=== PATIENT | female | born 1955 | race Caucasian/White ===

== ENCOUNTER 2016-08-06 16:54 | Inpatient (IN) | payer OTHER, SELFPAY ==
[~2016-08-06] VITALS: Ht 160 cm; Wt 55.0 kg
[~2016-08-06 16:54] MED LIST: COREG 3.125M3.125 MG PO; LISINOPRIL20 MG PO
[2016-08-06 18:53] LABS: HEMOGLOBIN 14.8 gm/dl (12.3-15.3); RED BLOOD COUNT 4.46 M/UL (4.00-5.10); WHITE BLOOD COUNT 11.6 K/UL (4.5-11.0)
[2016-08-06 19:07] LABS: BUN/CREATININE RATIO 18 (0-10)
[2016-08-07 06:41] LABS: HEMOGLOBIN 13.5 gm/dl (12.3-15.3); RED BLOOD COUNT 4.04 M/UL (4.00-5.10)
[2016-08-07 06:46] LABS: WHITE BLOOD COUNT 8.3 K/UL (4.5-11.0)
[2016-08-07 07:08] LABS: BUN/CREATININE RATIO 28 (0-10)
[2016-08-07] MEDS ORDERED: NORVASC 5 MG TAB5 MG PO (13:00)
[2016-08-07] MEDS ORDERED: COREG 3.125M3.125 MG PO (13:01)
[2016-08-07] MEDS ORDERED: LORAZEPAM0.5 MG PO (13:02)
[2016-08-07] MEDS ORDERED: FIORICET TAB1 EA PO (13:04)
[2016-08-07] MEDS ORDERED: ZANAFLEX4 MG PO (13:05)
[2016-08-08 05:54] LABS: HEMOGLOBIN 12.3 gm/dl (12.3-15.3); RED BLOOD COUNT 3.76 M/UL (4.00-5.10)
[2016-08-08 05:56] LABS: WHITE BLOOD COUNT 11.4 K/UL (4.5-11.0)
[2016-08-08 06:13] LABS: BUN/CREATININE RATIO 28 (0-10)
[2016-08-09] MEDS ORDERED: SYMBICORT 16010.2 GM INH (16:25)
[2016-08-09] MEDS ORDERED: TESSALON PERLE100 MG PO (16:25)
[2016-08-09] MEDS ORDERED: OMNICEF 300 MG300 MG PO (16:26)
[2016-08-09] MEDS ORDERED: IPRAT-ALBUT 0.5-3 ML INH (16:27)
[2016-08-09] MEDS ORDERED: NICOTINE PATCH1 EAC2 TD (16:28)
== END 2016-08-09 17:45 | disposition home or self-care (01) | DRG 871 ==
LOC: ER1 16:54 → ZEROF 20:15 → M/S 20:15 → ZEROF 08-07 11:48 → M/S 08-07 11:48
PROVIDERS: Internal Medicine; Physician Assistant; ADMIT Hospitalist
DX: A41.9 Sepsis, unspecified organism (principal); J96.01 Acute respiratory failure with hypoxia; J18.9 Pneumonia, unspecified organism; J44.1 Chronic obstructive pulmonary disease with (acute) exacerbation; J44.0 Chronic obstructive pulmonary disease with (acute) lower respiratory infection; E87.1 Hypo-osmolality and hyponatremia; J20.9 Acute bronchitis, unspecified; F17.210 Nicotine dependence, cigarettes, uncomplicated; I10 Essential (primary) hypertension; Z79.899 Other long term (current) drug therapy; Z82.49 Family history of ischemic heart disease and other diseases of the circulatory system
CPT/HCPCS: 36415; 36600; 71010; 71020; 80048; 80053; 81001; 82550; 82553; 82803; 82962; 83605; 83874; 84484; 85025; 86140; 87040; 87081; 87086; 87278; 87880; 93005; 94640; 94664; 94760; 96361; 96374; 96375; 99285; J0456; J0696; J2930; J7030; J7050

== ENCOUNTER 2020-05-28 21:08 | Emergency (ER) | payer BC ==
[~2020-05-28 21:08] MED LIST changes: +FIORICET TAB1 EA PO; +IPRAT-ALBUT 0.5-3 ML INH; +LORAZEPAM0.5 MG PO; +NICOTINE PATCH1 EAC2 TD; +NORVASC 5 MG TAB5 MG PO; +OMNICEF 300 MG300 MG PO; +SYMBICORT 16010.2 GM INH; +TESSALON PERLE100 MG PO; +ZANAFLEX4 MG PO
[2020-05-29 01:02] LABS: HEMOGLOBIN 14.7 gm/dl (12.3-15.3); RED BLOOD COUNT 4.46 M/UL (4.00-5.10); WHITE BLOOD COUNT 13.8 K/UL (4.5-11.0)
[2020-05-29 01:12] LABS: BUN/CREATININE RATIO 32 (0-10)
== END 2020-05-29 03:05 | disposition home or self-care (01) ==
LOC: ER1 21:08
PROVIDERS: Physician Assistant
DX: R10.31 Right lower quadrant pain (principal); R11.0 Nausea; I10 Essential (primary) hypertension; J44.9 Chronic obstructive pulmonary disease, unspecified; F17.200 Nicotine dependence, unspecified, uncomplicated; Z90.710 Acquired absence of both cervix and uterus
CPT/HCPCS: 80053; 81001; 85025; 87086; 96374; 96375; 99284; J1885; J2405

== ENCOUNTER → 2020-10-06 | Outpatient (CLI) | payer BC, OTHER | LOC: HEART 5 09:00 | DX: R00.2 Palpitations (principal); R00.0 Tachycardia, unspecified; I10 Essential (primary) hypertension; Z86.16 Personal history of COVID-19; I08.3 Combined rheumatic disorders of mitral, aortic and tricuspid valves; I27.20 Pulmonary hypertension, unspecified; I31.3 Pericardial effusion (noninflammatory) | CPT/HCPCS: 93306 ==